=== PATIENT | male | born 1990 | race Caucasian/White ===

== ENCOUNTER 2022-06-23 09:17 | Outpatient (REF) | payer MEDICAID, SELFPAY ==
--- NOTE | ~2022-06-23 | US_ITS ---
EXAMINATION: US ABDOMEN COMPLETE CLINICAL INFORMATION: Right upper quadrant pain. COMPARISON: None available. TECHNIQUE: Real-time imaging of the abdominal viscera. FINDINGS: PANCREAS: Normal. ABDOMINAL AORTA: The proximal, mid, and distal segments are normal in caliber. INFERIOR VENA CAVA: Visualized portions are normal. LIVER: The liver is normal in size. The liver contour is normal. liver echotexture is increased. No focal hepatic lesion. There is no intrahepatic biliary duct dilatation seen. GALLBLADDER: Normal. The gallbladder is physiologically distended without evidence of stones, sludge, polyps, wall thickening or pericholecystic fluid. COMMON BILE DUCT: Normal in caliber measuring 0.3 cm in diameter. RIGHT KIDNEY: Normal. No hydronephrosis. No renal calculi or focal parenchymal lesions. The kidney measures 11.1 cm in maximum dimension. LEFT KIDNEY: Normal. No hydronephrosis. No renal calculi or focal parenchymal lesions. The kidney measures 10.7 cm in maximum dimension. SPLEEN: Normal. The spleen measures 10.5 cm in maximum dimension. FREE FLUID: None. US/US abdomen complete IMPRESSION: Echogenic liver probably representing fatty infiltration. Otherwise unremarkable exam.
== END 2022-06-23 09:18 | disposition home or self-care (01) ==
LOC: HO.HMGCX 09:17
PROVIDERS: PCP Registered Nurse; Visit Provider Registered Nurse
DX: R10.84 Generalized abdominal pain (principal)
CPT/HCPCS: 76700

== ENCOUNTER 2024-09-12 10:06 | Outpatient (REF) | payer MEDICAID, SELFPAY ==
--- OUTSIDE RECORDS SUMMARY | 2024-09-12 11:20 | XMS_ITS | Encounter Summary ---
Author Organization [employer] Address [address] [facility] [address] [place] [address] Care Team Providers Care Zyglo Inspector Name Role Phone Cyndee Tavares Primary Care Provider [phone] Torres Morales Primary Care Provider Unavail Linda Roach Primary Care Provider [phone] Reason for Visit * Reason Onset Date Comments triage 05/26/2022 Encounter Details Date Type Department Care Team ([facility] st Contact Info) Description 05/26/2022 Telephone [facility] [address] [place] [address] Cyndee Tavares FNP [address] [place], [place] [phone] triage Social History Tobacco Use Types Packs/Day Years Used Date Smoking Tobacco: Never Assessed Sex and Gender Information Value Date Recorded Sex Assigned at Male 01/25/2022 10:14 AM EDT Legal Sex Male 10:14 AM EDT Gender Identity Male 01/25/2022 10:14 AM EDT Sexual Orientation Choose not to disclose 2021 10:14 AM EDT documented as of this encounter Miscellaneous Notes * Telephone Encounter - Holile Chaidez RN - 05/26/2022 11:31 AM EST Triage call,, Pt is requesting reschedule for canceled apt 05/26 (provider). Pt was triaged 05/18 for intermittent abdominal pain and cramping. Pt still has symptoms. Pt reportssymptoms are tolerable and will go to ED for evaluation if needed. Rescheduled for 06/04 @ 1045am with JOSE CRUZ Morales. Pt agreed. * Telephone Encounter - Vik Holtos - 05/26/2022 11:00 AM EST Tc from pt requesting to r/s appt on 05/26/22 cancel by center. ( Intermittent abdominal pain and cramping ) pt still has symptoms documented in this encounter Plan of Treatment Not on file documented as of this encounter Visit Diagnoses Not on filedocumented in this encounter Care Teams Zyglo Inspector Relationship Specialty Start Date End Date Cyndee Tavares FNP [address] [place] [id number] PCP - General Family Medicine 09/04/21 07/04/22 Torres Morales AGNP [address] [place] [phone] PCP - General Family Medicine 07/05/22 12/15/22 Linda Poon ANP [address] [place] [address] PCP - General Family Medicine 12/16/22 documented as of this encounter
[2024-09-12 11:39] LABS: MANUAL DIFF FLAG NO
[2024-09-12 11:51] LABS: Basophils Percent Auto 0.3 % (0-2); Eosinophils Absolute Auto 0.4 X10*3/uL (0.0-0.4); Eosinophils Percent Auto 6.5 % (0-4); Hematocrit 45.3 % (42.0-52.0); Hemoglobin 15.8 g/dl (14.0-18.0); Imm Gran Abs Auto 0.02 X10*3/uL (0.00-0.03); Imm Gran Pct Auto 0.3 % (0.0-0.4); Lymphocytes Absolute Auto 1.9 X10*3/uL (1.2-4.9); Mean Corpuscular HGB Conc 34.9 g/dl (31.0-36.0); Mean Corpuscular Hemoglobin 30.9 pg (27.0-33.0); Mean Corpuscular Volume 88.5 fL (80.0-98.0); Mean Platelet Volume 10.9 fL (9.4-12.4); Monocytes Absolute Auto 0.5 X10*3/uL (0.1-1.2); Monocytes Percent Auto 8.2 % (2-11); Neutrophils Absolute Auto 3.6 x10*3/uL (2.0-8.3); Neutrophils Percent Auto 55.7 % (45-73); Platelet Count 217 X10*3/uL (160-400); Red Blood Count 5.12 X10*6/uL (4.60-5.80); Red Cell Distribution Width 11.7 % (11.0-16.0); White Blood Count 6.4 X10*3/uL (4.8-10.8)
[2024-09-12 12:15] LABS: Alanine Aminotransferase 31 U/L (0-40); Albumin Level 4.8 g/dL (3.5-5.0); Alkaline Phosphatase 82 U/L (39-117); Anion Gap 11 (12-20); Aspartate Amino Transferase 26 U/L (5-37); Bilirubin Total 0.2 mg/dL (0.0-1.0); Blood Urea Nitrogen 11 mg/dL (9-16); Calcium 9.9 mg/dL (8.4-10.2); Carbon Dioxide 27 mmol/L (22-29); Chloride 104 mmol/L (96-108); Estimated Glomerular Filt Rate > 60; Glucose Random 108 mg/dL (60-115); Potassium 3.9 mmol/L (3.3-5.1); Sodium 138 mmol/L (135-145)
== END 2024-09-12 10:07 | disposition home or self-care (01) ==
LOC: HO.HHCL 10:06
PROVIDERS: PCP Registered Nurse; Visit Provider Registered Nurse
DX: K92.0 Hematemesis (principal)
CPT/HCPCS: 36415; 80053; 85025